=== PATIENT | female | born 1995 ===

== ENCOUNTER 2018-06-21 13:43 | Emergency (ER) | payer MEDICAID, OTHER ==
[2018-06-21 14:05] VITALS: RESP 18; BMI 21.9
--- NOTE | 2018-06-21 15:47 | ED PDOC ---
Arrival/HPI - General Chief Complaint: Dental Pain Time Seen by Provider: 06/21/18 13:46 Historian: Patient - History of Present Illness Narrative History of Present Illness (Text): 06/21/18 18:38 23-year-old female presents today with swelling to the right side of the face for one month. Patient states about one month ago she had a right upper wisdom tooth extracted. Patient states she actually had swelling prior to the removal of the wisdom tooth. Patient states the swelling continued after the removal of the tooth and has not resolved. Patient states just last night she started to get some pain to the jaw. She denies trismus or drooling. Denies fevers or chills. Took Advil for pain yesterday. No medications have been taken for pain at home. No other complaints. Patient states she has not followed up with the dentist since the procedure. Past Medical History - Provider Review Nursing Documentation Reviewed: Yes - Travel History Have you recently traveled outside [place] w/in the past 3 mons?: No - Infectious Disease Hx of Infectious Diseases: None - Reproductive Currently : No - Psychiatric Hx Substance Use: No - Anesthesia Hx Anesthesia: No Hx Anesthesia Reactions: No Hx Malignant Hyperthermia: No Family/Social History - Physician Review Nursing Documentation Reviewed: Yes Family/Social History: Unknown Family HX Smoking Status: Unknown If Ever Smoked Hx Alcohol Use: No Hx Substance Use: No Allergies/Home Meds Allergies/Adverse Reactions: Allergies No Known Allergies Allergy (Verified 07/19/15 12:52) Review of Systems - Review of Systems Constitutional: absent: Fatigue, Fevers ENT: Other (dental pain). absent: Sore Throat, Sinus Congestion Respiratory: absent: SOB, Cough Cardiovascular: absent: Chest Pain, Palpitations Gastrointestinal: absent: Abdominal Pain, Nausea, Vomiting Skin: absent: Rash, Pruritis Neurological: absent: Headache, Dizziness Psychiatric: absent: Anxiety, Depression Physical Exam Vital Signs Reviewed: Yes Vital Signs Temp Pulse Resp BP Pulse Ox 06/21/18 13:44 97.7 F 85 18 107/63 100 Temperature: Afebrile Blood Pressure: Normal Pulse: Regular Respiratory Rate: Normal Appearance: Positive for: Well-Appearing, Non-Toxic, Comfortable Pain Distress: None Mental Status: Positive for: Alert and Oriented X 3 - Systems Exam Head: Present: Swelling (slight swelling to the right cheek without erythema. ) Conjunctiva: Present: Normal Ears: Present: Normal, NORMAL TM Mouth: Present: Moist Mucous Membranes, Normal Lips, Normal Tounge, Normal Teeth, Other (Tenderness noted to the right upper molars. No abscess. Fluctuance noted. No erythema. No trismus or drooling.). No: Drooling, Trismus Pharnyx: Present: Normal Nose (External): Present: Atraumatic Nose (Internal): Present: Normal Inspection Neck: Present: Normal Range of Motion, Trachea Midline. No: Lymphadenopathy Respiratory/Chest: Present: Clear to Auscultation, Good Air Exchange. No: Respiratory Distress, Accessory Muscle Use Cardiovascular: Present: Regular Rate and Rhythm, Normal S1, S2. No: Murmurs Neurological: Present: GCS=15 Skin: Present: Warm, Dry, Normal Color. No: Rashes Psychiatric: Present: Alert, Oriented x 3 Medical Decision Making ED Course and Treatment: 06/21/18 20:41 Patient is nontoxic well-appearing in no distress with stable vital signs No trismus or drooling, moist mucous membranes We'll treat the patient with amoxicillin for possible dental infection/early abscess although there is no palpable fluctuance or visualized abscess. Patient has had the swelling for more than one month. remains afebrile. Amoxicillin motrin po I advised follow-up with the dentist within the next 2 days. I advised immediate return is symptoms worsen persist or if new concerning symptoms develop. Patient verbalizes understanding of discharge instructions and need for immediat e followup. all aspects of this case were discussed the attending of record. Impression: Toothache Motrin every 6 hours as needed for pain Amoxicillin 1 tablet twice times daily 10 days Follow-up with the dentist within the next 2 days Return immediately if symptoms worsen persist or if new concerning symptoms develop - Medication Orders Current Medication Orders: Discontinued Medications Amoxicillin (Amoxil 500 Mg Cap) 500 mg PO STAT STA; Protocol Stop: 06/21/18 15:32 Disposition/Present on Arrival - Present on Arrival Any Indicators Present on Arrival: No History of DVT/PE: No History of Uncontrolled Diabetes: No Urinary Catheter: No History of Decub. Ulcer: No History Surgical Site Infection Following: None - Disposition Have Diagnosis and Disposition been Completed?: Yes Diagnosis: Pain, dental Disposition: HOME/ ROUTINE Disposition Time: 15:40 Patient Plan: Discharge Condition: GOOD Discharge Instructions (ExitCare): Dental Pain (DC) Additional Instructions: Motrin every 6 hours as needed for pain Amoxicillin 1 tablet twice times daily 10 days Follow-up with the dentist within the next 2 days Return immediately if symptoms worsen persist or if new concerning symptoms develop Prescriptions: Amoxicillin 875 mg PO BID #14 tab Ibuprofen [Motrin Tab] 400 mg PO Q6H PRN #20 tab PRN Reason: Pain, Mild (1-3) Referrals: Logan Grier DMD [Staff Provider] - Follow up with primary Neto Rosario DMD [Non-Staff] - Follow up with primary Forms: [employer] ([place]), WORK NOTE
[2018-06-21 16:27] VITALS: BP 101/69; PULSE 61; TEMP 98; O2SAT 99
== END 2018-06-21 17:21 | disposition home or self-care (01) ==
LOC: ED 13:43
DX: K08.89 Other specified disorders of teeth and supporting structures (principal)